=== PATIENT | male | born 1945 | race Caucasian/White ===

== ENCOUNTER → 2016-08-22 | Outpatient (CLI) | payer OTHER ==
[~2016-08-22] MED LIST: COZA50TA PO
[2016-08-22 09:52] LABS: BLOOD GAS BASE EXCESS -1.3 mmol/L (-2-2); BLOOD GAS CARBOXYHEMOGLOBIN 1.4 % (0-4); BLOOD GAS HCO3 23 mmol/L (22-26); BLOOD GAS METHEMOGLOBIN 1.1 % (0-2); BLOOD GAS O2 HGB SATURATION 95 % (90-100); BLOOD GAS OXYGEN CONTENT 20.5 Vol % (12.0-20.0); BLOOD GAS PCO2 37 mmHg (38-42); BLOOD GAS PO2 90 mmHg (61-120); BLOOD GAS TOTAL HGB 15.3 G/DL (12.0-16.0); TEMP CORR TO 98.6
[2016-08-22 09:53] LABS: CRITICAL VALUE NO; DRAW SITE LT RADIAL; FIO2 21 %; NUMBER OF ARTERIAL PUNCTURES 1; STAT NO; ULNAR PULSE PRESENT
--- NOTE | 2016-08-26 09:24 | RSPPFT ---
DATE OF PROCEDURE: 08/22/16 COMMENTS: Spirometry with FVC of 3.2 predicted 4.6, FEV1 of 2.6 predicted 3.0, FEV1/FVC ratio 83% predicted 65%. Lung volumes are basically within the predicted range. There is a minimal increase in the RV at 2.8 predicted 2.7. DLCO is 97% of predicted. IMPRESSION: On the basis of the above, patient has a mild restrictive defect with decreased FVC.
== END ==
LOC: HRSP 09:04
PROVIDERS: ATTEND Internal Medicine Pulmonary Disease
DX: J84.10 Pulmonary fibrosis, unspecified (principal)
CPT/HCPCS: 36600; 82805; 94060; 94620; 94726; 94729